=== PATIENT | female | born 1970 | race Caucasian/White ===

== ENCOUNTER 2017-01-02 19:08 | Emergency (ER) | payer SELFPAY ==
[~2017-01-02] VITALS: Ht 167.6 cm; Wt 59.0 kg
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
--- NOTE | 2017-01-02 19:25 | NUR ---
Pt refusing lab draw, aware.
--- NOTE | 2017-01-02 19:27 | NUR ---
PTREFUSING CARE.[facility] LEFT
--- NOTE | 2017-01-02 19:30 | NUR ---
Pt refusing to sign registration paperwork. Pt sts " I dont have insurance. I'm not signing anything. I'm not paying for anything. I'm not staying. I'm not paying for anything."
--- NOTE | 2017-01-02 19:38 | NUR ---
Dr. Richards at bedside for MSE.
--- NOTE | 2017-01-02 19:42 | NUR ---
MEDICALLLY CLEARED BY DR BLAIR. CALLED LORETTA CHISHOLM FROM PET TEAM TO EVAL PATIENT. ETA 1HR
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
--- NOTE | 2017-01-02 20:36 | NUR ---
Pinky with crisis team at bedside
--- NOTE | 2017-01-02 21:37 | NUR ---
Pt stable for discharge per crisis team and MD. Pt refused vss but otherwise calm and cooperative. Pt given ACI. Pt verbalized understanding of dc instructions. Pt ambulated out of er with steady gait and local company hazmat driver hoome
[2017-01-02 21:55] VITALS: BP 0/0
== END 2017-01-02 21:30 | disposition home or self-care (01) ==
LOC: ER 19:10
DX: F10.10 Alcohol abuse, uncomplicated (principal); R45.1 Restlessness and agitation
CPT/HCPCS: 93005; A4663